=== PATIENT | male | born 1995 | race Asian ===

== ENCOUNTER 2019-01-25 15:56 | Inpatient (IN) ==
[2019-01-25] MEDS ORDERED: VANCOMYCIN HCL 1,500 MG in SODIUM CHLORIDE 0.9% 500 ML IV ONE (17:43)
[2019-01-25] MEDS ORDERED: cefTRIAXone SODIUM 2,000 MG/70 ML BAG IV STA (17:43)
[2019-01-25] MEDS ORDERED: VANCOMYCIN CONSULT ACTIVE PRN ×2 (17:43→23:56)
[2019-01-25] MEDS ORDERED: ACETAMINOPHEN 1,000 MG/100 ML VIAL IV STA (17:55)
[2019-01-25] MEDS ORDERED: ONDANSETRON INJ 2 MG/ML 2 ML VIAL IV STA (17:55)
[2019-01-25] MEDS ORDERED: LEVOFLOXACIN/D5W 750 MG/150 ML BAG IV STA (18:05)
[2019-01-25 18:42] LABS: Basophils # (auto) 0.01 K/uL (0-0.2); Basophils % (auto) 0.1 %; Eosinophils # (auto) 0.22 K/uL (0-0.5); Eosinophils % (auto) 1.7 %; Hematocrit (blood only) 41.9 % (42-52); Hemoglobin 14.4 g/dL (14.0-18.0); Immature Granulocytes # (auto) 0.02 K/uL (0.00-0.02); Immature Granulocytes % (auto) 0.2 %; Lymphocytes # (auto) 2.14 K/uL (1.2-3.4); Lymphocytes % (auto) 16.3 %; Mean Corpuscular Hemoglobin 30.5 pg (25-34); Mean Corpuscular Hgb Conc 34.4 g/dL (32-36); Mean Corpuscular Volume 88.8 fL (80-100); Mean Platelet Volume 9.4 fL (7.4-10.4); Monocytes % (auto) 7.6 %; Neutrophils # (auto) 9.73 K/uL (1.4-6.5); Neutrophils % (auto) 74.1 %; Platelet Count 287 K/uL (130-400); RDW Coefficient of Variation 12.3 % (11.5-14.5); RDW Standard Deviation 39.9 fL (36.4-46.3); Red Blood Count 4.72 M/uL (4.7-6.1); White Blood Count 13.12 K/uL (4.8-10.8)
[2019-01-25] MEDS: HYDROmorphone INJ 1 MG/ML SYRINGE IV PRN ×2 (18:45→20:54)
[2019-01-25 18:46] LABS: Appearance Urine Clear (Clear); Bilirubin Urine Negative (Negative); Blood Urine Negative (Negative); Color Urine Yellow; Glucose Urine UA Negative (Negative); Ketones Urine Negative (Negative); Leukocyte Esterase Urine Negative (Negative); Nitrite Urine Negative (Negative); Protein Urine Negative (Negative); Urobilinogen Urine Negative (Negative); pH Urine 6.5 (4.5-7.5)
[2019-01-25 19:08] LABS: Albumin Level 4.1 gm/dl (3.4-5.0); BUN Creatinine Ratio 12.4 (10-20); Calcium 9.2 mg/dl (8.5-10.1); Creatinine Clr Calc Pharmacy 97.5 ml/min; Est GFR (African American) 108.3; Est GFR (Non-African American) 93.4; Potassium 3.8 mmol/L (3.5-5.1)
[2019-01-25 19:10] LABS: Albumin Globulin Ratio 0.9 (0.9-2); Bilirubin,Total 0.3 mg/dl (0.2-1); Globulin 4.4 gm/dl (2.5-4.0); Total Protein 8.5 gm/dl (6.4-8.2)
[2019-01-25] MEDS ORDERED: LIDO/EPINEPHRINE/SOD BICARB 20 ML VIAL ONE (19:49)
--- NOTE | 2019-01-25 21:12 | Emergency Department Note ---
Entered by Fanny Singh acting as a scribe for Yariel Hamilton MD History of Present Illness General Chief complaint: Knee Injury/Pain Stated complaint: LEFT KNEE INJURY, POSSIBLE INFECTION Time Seen by Provider: 01/25/19 17:16 Source: patient History of Present Illness Provider complaint: Knee Injury/Pain Onset (ago): day(s) 2 Location: knee and left Radiation: non-radiation Maximum Pain Intensity: 7 Relieved By: + none Exacerbated By: + none The patient is a 23 year old male who presents to the Emergency Room with complaints of a left sided knee injury/pain that began 2 days ago. The patient states that he went to [facility] and had his knee tapped and he was referred to the ED for possible infection. The patient states the pain does not radiate anywhere else on his body and is not relieved nor exacerbated by anything specific. Home Medications Home Medications Medication Instructions Recorded Confirmed Type cetirizine [Zyrtec] 10 mg PO DAILY 01/25/19 01/25/19 History naproxen [Naprosyn] 500 mg PO BID 01/25/19 01/25/19 History triamcinolone acetonide 1 applic TOPICAL BID PRN 01/25/19 01/25/19 History cephalexin [Keflex] 500 mg PO QID 14 Days #56 cap 01/27/19 Rx Allergies Allergy/AdvReac Type Severity Reaction Status Date / Time chicken derived Allergy ITCHY Verified 01/25/19 20:45 Penicillins Allergy Rash Verified 01/25/19 20:45 Past Med/Surg History Medical History No pertinent past medical history Psoriasis Family History Other No pertinent family history in first degree relatives Social History Preferred Language: Singaporean Communication Ability: Effective Machine I Cutter Required: No Beliefs That Will Affect Care: None marital status: Single Current Living Situation: Other Current Living Situation Comment: [place] Feels Safe at Home: Yes Smoking Status: Never smoker Hx Alcohol Use: Yes Hx Substance Use: No Review of Systems See HPI for pertinent positives & negatives. and A total of 10 systems reviewed and were otherwise negative Physical Exam Vital Signs Vital Signs - 24 hr 01/25/19 16:05 01/25/19 17:43 01/25/19 18:10 Temperature 36.7 C Temperature Source Oral Pulse Rate 96 H 103 H Pulse Rate [Apical] Pulse Rate from SpO2 Sensor Respiratory Rate 16 18 Respiratory Effort / Characteristics Non-Labored Spontaneous Respiratory Depth Normal Blood Pressure 174/69 H Blood Pressure [Left Arm] Blood Pressure Mean 104 Blood Pressure Mean [Left Arm] Blood Pressure Position Sitting Pulse Oximetry 97 97 Oxygen Delivery Method Room Air Room Air Sepsis Recent Fever Within 48 Hours No Sepsis New/Unexplained Change in Mental Status No Sepsis Action Taken by Nursing No Action Required 01/25/19 18:30 01/25/19 19:00 01/25/19 19:02 Temperature Temperature Source Pulse Rate 92 H 96 H 92 H Pulse Rate [Apical] Pulse Rate from SpO2 Sensor 91 H Respiratory Rate 20 17 17 Respiratory Effort / Characteristics Respiratory Depth Blood Pressure 119/68 Blood Pressure [Left Arm] Blood Pressure Mean 89 Blood Pressure Mean [Left Arm] Blood Pressure Position Pulse Oximetry 97 Oxygen Delivery Method Sepsis Recent Fever Within 48 Hours Sepsis New/Unexplained Change in Mental Status Sepsis Action Taken by Nursing 01/25/19 19:03 01/25/19 20:48 Temperature Temperature Source Pulse Rate 96 H Pulse Rate [Apical] 98 H Pulse Rate from SpO2 Sensor 94 H Respiratory Rate 17 18 Respiratory Effort / Characteristics Respiratory Depth Blood Pressure 119/68 Blood Pressure [Left Arm] 126/76 Blood Pressure Mean 85 Blood Pressure Mean [Left Arm] 92 Blood Pressure Position Pulse Oximetry 96 98 Oxygen Delivery Method Room Air Sepsis Recent Fever Within 48 Hours Sepsis New/Unexplained Change in Mental Status Sepsis Action Taken by Nursing GENERAL: Awake, alert, well-appearing, in no acute distress HENT: Normocephalic, atraumatic. Oropharynx unremarkable. EYES: Normal conjunctiva. Sclera non-icteric. NECK: Supple. No nuchal rigidity. FROM. No JVD. RESPIRATORY: Clear to auscultation. CARDIAC: Regular rate, normal rhythm. Extremities warm and well perfused. Pulses equal. ABDOMEN: Soft, non-distended. No tenderness to palpation. No rebound or guarding. No masses. RECTAL: Deferred. MUSCULOSKELETAL: Chest examination reveals no tenderness. The back is symmetrical on inspection without obvious abnormality. There is no CVA tenderness to palpation. No joint edema. LOWER EXTREMITIES: Calves are equal size bilaterally and non-tender. Open wound to the anterior distal end of femur with bubbling pus but has good ROM of knee itself. NEURO: Normal sensorium. No sensory or motor deficits noted. SKIN: No rash or jaundice noted. Procedures Abscess I/D Site: lower extremity (I myself performed this needle aspiration on the left knee Knee) Side (if applicable): left Local Anesthetic: lidocaine 1% and with epi Amount of anesthesia used (mL): 10 Technique: needle aspiration Amount of fluid expressed (mL): 10 Irrigation: Yes Packing used?: none Course Course 174: Past medical records reviewed. The patient was evaluated in room B04B. A complete history and physical exam was performed. 2004: I spoke with Dr. Montoya- Hospitalist about the patient's case and he will accept the patient for further evaluation. Administered Medications Discontinued Medications Acetaminophen (Tylenol) 650 mg PO Q4H PRN PRN Reason: mild pain or fever Stop: 02/24/19 23:55 Last Admin: 01/26/19 03:08 Dose: 650 mg Documented by: [id number] Acetaminophen (Ofirmev) 1,000 mg IV ONE ONE Stop: 01/26/19 17:08 Last Admin: 01/26/19 17:12 Dose: 1,000 mg Documented by: [id number] Acetaminophen (Ofirmev) Confirm Administered Dose 1,000 mg IV .STK-MED ONE Stop: 01/26/19 17:09 Last Admin: 01/26/19 17:44 Dose: Not Given Documented by: [id number] Bacitracin (Bacitracin) Confirm Administered Dose 50,000 units .ROUTE .STK-MED ONE Stop: 01/26/19 14:50 Last Admin: 01/26/19 16:06 Dose: Not Given Documented by: [id number] Bupivacaine HCl (Marcaine 0.5% Mpf) Confirm Administered Dose 30 ml .ROUTE .STK- MED ONE Stop: 01/26/19 15:46 Last Admin: 01/26/19 16:06 Dose: 5 ml Documented by: [id number] Cefazolin Sodium (Ancef 1000mg) Confirm Administered Dose 1,000 mg IV .STK-MED ONE Stop: 01/26/19 15:21 Last Admin: 01/26/19 17:57 Dose: Not Given Documented by: [id number] Cephalexin HCl (Keflex) 500 mg PO QID JONATHAN Stop: 02/06/19 13:29 Last Admin: 01/27/19 14:22 Dose: 500 mg Documented by: [id number] Cetirizine HCl (Zyrtec) 10 mg PO DAILY [facility] Stop: 02/25/19 08:59 Last Admin: 01/27/19 08:48 Dose: Not Given Documented by: [id number] Admin: 01/26/19 08:44 Dose: Not Given Documented by: [id number] Cetirizine HCl (Zyrtec) 10 mg PO NOW ONE Stop: 01/25/19 23:57 Last Admin: 01/26/19 00:52 Dose: 10 mg Documented by: [id number] Enoxaparin Sodium (Lovenox) 40 mg SQ DAILY [facility] Stop: 02/25/19 08:59 Last Admin: 01/27/19 08:48 Dose: 40 mg Documented by: [id number] Admin: 01/26/19 17:40 Dose: 40 mg Documented by: [id number] Famotidine (Pepcid) 20 mg PO BID [facility] Stop: 02/24/19 22:29 Last Admin: 01/27/19 08:48 Dose: Not Given Documented by: [id number] Admin: 01/26/19 20:19 Dose: Not Given Documented by: [id number] Admin: 01/26/19 08:44 Dose: Not Given Documented by: [id number] Admin: 01/26/19 00:52 Dose: Not Given Documented by: [id number] Fentanyl Citrate (Fentanyl Citrate) 50 mcg IV Q5M PRN PRN Reason: PACU Use Only-Pain Stop: 01/26/19 19:55 Last Admin: 01/26/19 16:41 Dose: 50 mcg Documented by: [id number] Admin: 01/26/19 16:36 Dose: 50 mcg Documented by: [id number] Hydromorphone HCl (Dilaudid) 1 mg IV Q15M PRN PRN Reason: Pain Stop: 02/08/19 17:54 Last Admin: 01/25/19 20:54 Dose: 1 mg Documented by: [id number] Admin: 01/25/19 18:45 Dose: 1 mg Documented by: [id number] Ceftriaxone Sodium (Rocephin) 2,000 mg in 70 mls @ 140 mls/hr IV NOW STA Stop: 01/25/19 18:12 Last Infusion: 01/25/19 19:26 Dose: 0 mls/hr Documented by: [id number] Admin: 01/25/19 18:46 Dose: 140 mls/hr Documented by: [id number] Vancomycin HCl 1,500 mg/ (Sodium Chloride) 530 mls @ 200 mls/hr IV NOW ONE Stop: 01/25/19 20:21 Last Infusion: 01/25/19 23:42 Dose: 0 mls/hr Documented by: [id number] Admin: 01/25/19 20:48 Dose: 200 mls/hr Documented by: [id number] Acetaminophen (Ofirmev) 1,000 mg in 100 mls @ 400 mls/hr IV NOW STA Stop: 01/25/19 18:09 Last Infusion: 01/25/19 19:23 Dose: 0 mls/hr Documented by: [id number] Admin: 01/25/19 18:45 Dose: 400 mls/hr Documented by: [id number] Levofloxacin/Dextrose (Levaquin/D5w) 750 mg in 150 mls @ 100 mls/hr IV NOW STA Stop: 01/25/19 19:34 Last Infusion: 01/25/19 20:44 Dose: 0 mls/hr Documented by: [id number] Admin: 01/25/19 19:00 Dose: 100 mls/hr Documented by: [id number] Methylprednisolone 40 mg/ (Syringe) 0.64 mls @ 1.5 mls/min IV NOW STA Stop: 01/25/19 22:27 Last Admin: 01/25/19 22:53 Dose: 1.5 mls/min Documented by: [id number] Dextrose/Sodium Chloride (D5w And 1/2nss) 1,000 mls @ 125 mls/hr IV .Q8H JONATHAN Stop: 02/24/19 23:55 Last Admin: 01/27/19 08:45 Dose: Not Given Documented by: [id number] Infusion: 01/27/19 08:45 Dose: 0 mls/hr Documented by: [id number] Admin: 01/27/19 01:35 Dose: 125 mls/hr Documented by: [id number] Infusion: 01/27/19 01:35 Dose: 125 mls/hr Documented by: [id number] Admin: 01/26/19 17:46 Dose: 125 mls/hr Documented by: [id number] Infusion: 01/26/19 17:46 Dose: 0 mls/hr Documented by: [id number] Infusion: 01/26/19 14:45 Dose: 0 mls/hr Documented by: [id number] Infusion: 01/26/19 14:10 Dose: 125 mls/hr Documented by: [id number] Admin: 01/26/19 10:04 Dose: 125 mls/hr Documented by: [id number] Infusion: 01/26/19 08:52 Dose: 125 mls/hr Documented by: [id number] Infusion: 01/26/19 05:09 Dose: 125 mls/hr Documented by: [id number] Admin: 01/26/19 00:52 Dose: 125 mls/hr Documented by: [id number] Vancomycin HCl 1,250 mg/ (Sodium Chloride) 275 mls @ 125 mls/hr IV Q10H JONATHAN Stop: 02/05/19 06:59 Last Admin: 01/27/19 13:21 Dose: Not Given Documented by: [id number] Infusion: 01/27/19 05:35 Dose: 0 mls/hr Documented by: [id number] Admin: 01/27/19 03:23 Dose: 125 mls/hr Documented by: [id number] Infusion: 01/26/19 20:04 Dose: 0 mls/hr Documented by: [id number] Admin: 01/26/19 17:33 Dose: 125 mls/hr Documented by: [id number] Infusion: 01/26/19 08:40 Dose: 0 mls/hr Documented by: [id number] Admin: 01/26/19 06:05 Dose: 125 mls/hr Documented by: [id number] Cefazolin Sodium (Ancef 1000mg) 1,000 mg in 7.5 mls @ 2.5 mls/min IV PREOP JONATHAN Stop: 01/26/19 20:00 Last Admin: 01/26/19 15:29 Dose: 2.5 mls/min Documented by: [id number] Ketorolac Tromethamine (Toradol) 15 mg IV Q6H PRN PRN Reason: Moderate Pain Stop: 01/30/19 23:55 Last Admin: 01/27/19 03:16 Dose: 15 mg Documented by: [id number] Admin: 01/26/19 20:52 Dose: 15 mg Documented by: [id number] Lidocaine HCl (Xylocaine 1% (Local)) Confirm Administered Dose 20 ml .ROUTE .STK-MED ONE Stop: 01/26/19 15:46 Last Admin: 01/26/19 16:06 Dose: 5 ml Documented by: [id number] Lidocaine/Epinephrine (Buffered Xylocaine/Epinephrine 1%) Confirm Administered Dose 20 ml .ROUTE .STK-MED ONE Stop: 01/25/19 19:50 Last Admin: 01/26/19 11:28 Dose: Not Given Documented by: [id number] Methylprednisolone (Solumedrol) Confirm Administered Dose 40 mg .ROUTE .STK-MED ONE Stop: 01/25/19 22:48 Last Admin: 01/26/19 11:28 Dose: Not Given Documented by: [id number] Ondansetron HCl (Zofran) 4 mg IV NOW STA Stop: 01/25/19 17:56 Last Admin: 01/25/19 18:45 Dose: 4 mg Documented by: [id number] Medical Decision Making Differential Diagnosis Differential diagnosis: Etiologies such as cellulitis, abscess, osteomyelitis, MRSA infection, DVT, necrotizing fasciitis, dermatitis, drug eruption, as well as others were entertained. Medical Records Attestation: I reviewed the patient's medical records. Home Medications Current Medication List: was personally reviewed by me Laboratory Data Attestation: I reviewed the patient's lab results. Result diagrams: 01/27/19 07:01 01/27/19 07:01 Lab Results 01/25/19 01/25/19 01/25/19 Range/Units 18:05 18:12 18:12 WBC 13.12 H (4.8-10.8) K/uL RBC 4.72 (4.7-6.1) M/uL Hgb 14.4 (14.0-18.0) g/dL Hct 41.9 L (42-52) % MCV 88.8 (80-100) fL MCH 30.5 (25-34) pg MCHC 34.4 (32-36) g/dL RDW Std Deviation 39.9 (36.4-46.3) fL RDW Coeff of Jada 12.3 (11.5-14.5) % Plt Count 287 (130-400) K/uL MPV 9.4 (7.4-10.4) fL Immature Gran % (Auto) 0.2 % Neut % (Auto) 74.1 % Lymph % (Auto) 16.3 % [place] % (Auto) 7.6 % Eos % (Auto) 1.7 % Baso % (Auto) 0.1 % Immature Gran # (Auto) 0.02 (0.00-0.02) K/uL Neut # (Auto) 9.73 H (1.4-6.5) K/uL Lymph # (Auto) 2.14 (1.2-3.4) K/uL [place] # (Auto) 1.00 H (0.11-0.59) K/uL Eos # (Auto) 0.22 (0-0.5) K/uL Baso # (Auto) 0.01 (0-0.2) K/uL Sodium 137 (136-145) mmol/L Potassium 3.8 (3.5-5.1) mmol/L Chloride 105 (98-107) mmol/L Carbon Dioxide 25 (21-32) mmol/L Anion Gap 6.0 (3-11) BUN 14 (7-18) mg/dl Creatinine 1.12 (0.6-1.4) mg/dl Est Cr Clr Drug Dosing 97.5 ml/min Est GFR ( Amer) 108.3 Est GFR (Non-Af Amer) 93.4 BUN/Creatinine Ratio 12.4 (10-20) Glucose 80 (70-99) mg/dl Calcium 9.2 (8.5-10.1) mg/dl Total Bilirubin 0.3 (0.2-1) mg/dl AST 25 (15-37) U/L ALT 42 (12-78) U/L Alkaline Phosphatase 74 (45-117) U/L Total Protein 8.5 H (6.4-8.2) gm/dl Albumin 4.1 (3.4-5.0) gm/dl Globulin 4.4 H (2.5-4.0) gm/dl Albumin/Globulin Ratio 0.9 (0.9-2) Procalcitonin (0-0.5) ng/ml Urine Color Yellow Urine Appearance Clear (Clear) Urine pH 6.5 (4.5-7.5) Ur Specific [place] 1.020 (1.000-1.030) Urine Protein Negative (Negative) Urine Glucose (UA) Negative (Negative) Urine Ketones Negative (Negative) Urine Blood Negative (Negative) Urine Nitrite Negative (Negative) Urine Bilirubin Negative (Negative) Urine Urobilinogen Negative (Negative) Ur Leukocyte Esterase Negative (Negative) 01/25/19 Range/Units 18:12 WBC (4.8-10.8) K/uL RBC (4.7-6.1) M/uL Hgb (14.0-18.0) g/dL Hct (42-52) % MCV (80-100) fL MCH (25-34) pg MCHC (32-36) g/dL RDW Std Deviation (36.4-46.3) fL RDW Coeff of Jada (11.5-14.5) % Plt Count (130-400) K/uL MPV (7.4-10.4) fL Immature Gran % (Auto) % Neut % (Auto) % Lymph % (Auto) % [place] % (Auto) % Eos % (Auto) % Baso % (Auto) % Immature Gran # (Auto) (0.00-0.02) K/uL Neut # (Auto) (1.4-6.5) K/uL Lymph # (Auto) (1.2-3.4) K/uL [place] # (Auto) (0.11-0.59) K/uL Eos # (Auto) (0-0.5) K/uL Baso # (Auto) (0-0.2) K/uL Sodium (136-145) mmol/L Potassium (3.5-5.1) mmol/L Chloride (98-107) mmol/L Carbon Dioxide (21-32) mmol/L Anion Gap (3-11) BUN (7-18) mg/dl Creatinine (0.6-1.4) mg/dl Est Cr Clr Drug Dosing ml/min Est GFR ( Amer) Est GFR (Non-Af Amer) BUN/Creatinine Ratio (10-20) Glucose (70-99) mg/dl Calcium (8.5-10.1) mg/dl Total Bilirubin (0.2-1) mg/dl AST (15-37) U/L ALT (12-78) U/L Alkaline Phosphatase (45-117) U/L Total Protein (6.4-8.2) gm/dl Albumin (3.4-5.0) gm/dl Globulin (2.5-4.0) gm/dl Albumin/Globulin Ratio (0.9-2) Procalcitonin 0.15 (0-0.5) ng/ml Urine Color Urine Appearance (Clear) Urine pH (4.5-7.5) Ur Specific [place] (1.000-1.030) Urine Protein (Negative) Urine Glucose (UA) (Negative) Urine Ketones (Negative) Urine Blood (Negative) Urine Nitrite (Negative) Urine Bilirubin (Negative) Urine Urobilinogen (Negative) Ur Leukocyte Esterase (Negative) ECG Data Attestation: I personally reviewed and interpreted this ECG as follows: Indication: + other (Knee Injury/Pain) Rate (beats per minute): 99 Rhythm: + normal sinus ECG Intervals/blocks: + Normal QT-c (QTC is 454) ECG ST segments: + Normal ST segments ECG Findings: + Other (Normal axis) Blood Pressure Blood Pressure Findings: Normal blood pressure Blood Pressure Disposition: further management by hospitalist [facility] Narrative This is a 23-year-old male who presents emergency department complaining of knee pain. Patient had a large amount of pus drained from the knee by myself. I performed the procedure above. He was given Dilaudid for the pain and started on IV Rocephin and vancomycin as he is failed outpatient and antibiotic treatment. Due to the large area of cellulitis I did discuss the case with the hospitalist service who did agree to admit the patient. The knee itself the patient has good range of motion of and I believe that this abscess is in the prepatellar bursa. He does not have any evidence of any infection on my physical examination. Patient was in agreement with the treatment plan. Impression & Plan Infected prepatellar bursa, Cellulitis of knee, left, Knee pain Discharge Plan Visit Data *Final* Discharge Date/Time: 01/25/19 23:27 Chief Complaint: Knee Injury/Pain Stated Complaint: LEFT KNEE INJURY, POSSIBLE INFECTION ED Provider: Yariel Hamilton Discharge Problem: Infected prepatellar bursa, Cellulitis of knee, left, Knee pain Patient Disposition: Admitted As Inpatient Discharge Instructions Interventions: ED Discharge Assessment Last Done: 01/25/19 23:27 Discharge Problem: Infected prepatellar bursa Qualifiers: Laterality: left Qualified Code(s): M71.162 - Other infective bursitis, left knee Knee pain Qualifiers: Chronicity: acute Laterality: left Qualified Code(s): M25.562 - Pain in left knee The scribe's documentation has been prepared under my direction and personally reviewed by me in its entirety. I confirm that the note above accurately reflects all work, treatment, procedures, and medical decision making performed by me.
[2019-01-25] MEDS ORDERED: methylPREDNISolone 40 MG in SYRINGE 0 ML IV STA (22:26)
--- NOTE | 2019-01-25 22:31 | History & Physical Report ---
Date of Service January 25, 2019 Assessment & Plan (1) Infected prepatellar bursa: Admit to [facility] Continue IV Vancomycin There was discussion as to concerns for Vibrio infection as patient was recently in the [facility] He was given a dose of Rocephin and Levaquin in the ED each of which covers Vibrio. The patient is not immunocompromised and did not appear to have hemorrhagic bullae therefore I only continued Vancomycin at this time. I will have ID consulted CT scan of the L knee ordered Ortho consult Pain control. (2) Cellulitis of knee, left: DVT prophylaxis = Lovenox. (3) Dermatitis: Patient feels this is allergic reaction to something during his trip. He does have history of psoriasis lesions at base of scalp I gave single dose of Solu medrol 40mg IV. I will order steroid cream to use fo r am. Prn Benadryl in addition to his daily Zyrtec dosing. 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 He went to the [facility] and had pre-patellar bursa tapped and was placed on Bactrim. Following this the pain and redness worsened. The patient has recently traveled to the [facility] for break. He declined having F/C, N/V/D, cough, SOB, or chest pain. Left knee pain is 7/10. Primary Care Provider: [facility] Allergies Allergy/AdvReac Type Severity Reaction Status Date / Time chicken derived Allergy ITCHY Verified 01/25/19 20:45 Penicillins Allergy Rash Verified 01/25/19 20:45 Home Medications Home Medications Medication Instructions Recorded Confirmed Type cetirizine [Zyrtec] 10 mg PO DAILY 01/25/19 01/25/19 History naproxen [Naprosyn] 500 mg PO BID 01/25/19 01/25/19 History sulfamethoxazole-trimethoprim 1 tab PO BID 01/25/19 01/25/19 History [Bactrim DS] triamcinolone acetonide 1 applic TOPICAL BID PRN 01/25/19 01/25/19 History Past Med/Surg History Medical History No pertinent past medical history Psoriasis Family History Other No pertinent family history in first degree relatives Social History Preferred Language: Czech Feels Safe at Home: Yes Smoking Status: Never smoker Review of Systems Review of Systems: Constitutional- no fever; no weight loss Eyes- no acute visual changes ENT- no sinus drainage; no pharyngitis Pulmonary- no cough, no wheezing, no shortness of breath Cardiac- no chest pain, no palpitations, no orthopnea, no dependent edema GI- no nausea, no vomiting, no diarrhea, no melena, no hematochezia - no dysuria, no hematuria Musculoskeletal- As in HPI Derm- Left knee as in HPI, He shows me pruritic areas with erythema at base of posterior hairline and right thumb and 2nd finger. Hematologic- no unusual bruising, no unusual bleeding Lymphatics- no adenopathy Endocrine- no polyuria or polydipsia; no heat or cold intolerance Neuro- no headaches, no focal neurologic symptoms Psych- no anxiety, no depression Physical Exam Physical Exam: General- adult male, NAD Head- atraumatic Eyes- PERRL, EOMI, anicteric ENT- oropharynx clear Neck- supple, no JVD, no adenopathy, no thyromegaly. Lungs- CTA b/l no R/R/W Heart- regular rhythm; no murmur, no gallop, no rub appreciated Abdomen- normal bowel sounds, soft, nontender. Extremities- erythema centered over the left patella extending 1/[address] way to distal leg, around to posterior knee, and proximally to 1/3 lower thigh. The knee is dressed following I&D in ED. Neuro- alert, oriented x 3; PERRL, EOMI; CN's II-XII grossly intact, non-focal. Skin- See extremities, also erythema to the right hand between thumb and index finger and also base of posterior scalp these areas are pruritic. Results & Data Vital Signs (Past 12 Hours) Vital Signs Temp Pulse Pulse Resp BP BP Pulse Ox 01/25/19 22:01 95 H 14 01/25/19 22:00 79 14 118/40 L 01/25/19 21:30 85 23 118/71 01/25/19 21:01 84 23 01/25/19 21:00 99 H 17 111/93 01/25/19 20:48 98 H 18 126/76 98 01/25/19 20:30 99 H 17 126/76 01/25/19 20:00 101 H 19 126/87 01/25/19 19:30 102 H 14 118/63 01/25/19 19:03 96 H 17 119/68 96 01/25/19 19:02 92 H 17 119/68 97 01/25/19 19:00 96 H 17 01/25/19 18:30 92 H 20 01/25/19 18:10 103 H 18 01/25/19 17:43 97 01/25/19 16:05 36.7 C 96 H 16 174/69 H 97 Laboratory Results Laboratory Results WBC 13.12 K/uL (4.8-10.8) H 01/25/19 18:12 RBC 4.72 M/uL (4.7-6.1) 01/25/19 18:12 Hgb 14.4 g/dL (14.0-18.0) 01/25/19 18:12 Hct 41.9 % (42-52) L 01/25/19 18:12 MCV 88.8 fL (80-100) 01/25/19 18:12 MCH 30.5 pg (25-34) 01/25/19 18:12 MCHC 34.4 g/dL (32-36) 01/25/19 18:12 RDW Std Deviation 39.9 fL (36.4-46.3) 01/25/19 18:12 RDW Coeff of Jada 12.3 % (11.5-14.5) 01/25/19 18:12 Plt Count 287 K/uL (130-400) 01/25/19 18:12 MPV 9.4 fL (7.4-10.4) 01/25/19 18:12 Immature Gran % (Auto) 0.2 % 01/25/19 18:12 Neut % (Auto) 74.1 % 01/25/19 18:12 Lymph % (Auto) 16.3 % 01/25/19 18:12 [place] % (Auto) 7.6 % 01/25/19 18:12 Eos % (Auto) 1.7 % 01/25/19 18:12 Baso % (Auto) 0.1 % 01/25/19 18:12 Immature Gran # (Auto) 0.02 K/uL (0.00-0.02) 01/25/19 18:12 Neut # (Auto) 9.73 K/uL (1.4-6.5) H 01/25/19 18:12 Lymph # (Auto) 2.14 K/uL (1.2-3.4) 01/25/19 18:12 [place] # (Auto) 1.00 K/uL (0.11-0.59) H 01/25/19 18:12 Eos # (Auto) 0.22 K/uL (0-0.5) 01/25/19 18:12 Baso # (Auto) 0.01 K/uL (0-0.2) 01/25/19 18:12 Sodium 137 mmol/L (136-145) 01/25/19 18:12 Potassium 3.8 mmol/L (3.5-5.1) 01/25/19 18:12 Chloride 105 mmol/L (98-107) 01/25/19 18:12 Carbon Dioxide 25 mmol/L (21-32) 01/25/19 18:12 Anion Gap 6.0 (3-11) 01/25/19 18:12 BUN 14 mg/dl (7-18) 01/25/19 18:12 Creatinine 1.12 mg/dl (0.6-1.4) 01/25/19 18:12 Est Cr Clr Drug Dosing 97.5 ml/min 01/25/19 18:12 Est GFR ( Amer) 108.3 01/25/19 18:12 Est GFR (Non-Af Amer) 93.4 01/25/19 18:12 BUN/Creatinine Ratio 12.4 (10-20) 01/25/19 18:12 Glucose 80 mg/dl (70-99) 01/25/19 18:12 Calcium 9.2 mg/dl (8.5-10.1) 01/25/19 18:12 Total Bilirubin 0.3 mg/dl (0.2-1) 01/25/19 18:12 AST 25 U/L (15-37) 01/25/19 18:12 ALT 42 U/L (12-78) 01/25/19 18:12 Alkaline Phosphatase 74 U/L (45-117) 01/25/19 18:12 Total Protein 8.5 gm/dl (6.4-8.2) H 01/25/19 18:12 Albumin 4.1 gm/dl (3.4-5.0) 01/25/19 18:12 Globulin 4.4 gm/dl (2.5-4.0) H 01/25/19 18:12 Albumin/Globulin Ratio 0.9 (0.9-2) 01/25/19 18:12 Procalcitonin 0.15 ng/ml (0-0.5) 01/25/19 18:12 Urine Color Yellow 01/25/19 18:05 Urine Appearance Clear (Clear) 01/25/19 18:05 Urine pH 6.5 (4.5-7.5) 01/25/19 18:05 Ur Specific [place] 1.020 (1.000-1.030) 01/25/19 18:05 Urine Protein Negative (Negative) 01/25/19 18:05 Urine Glucose (UA) Negative (Negative) 01/25/19 18:05 Urine Ketones Negative (Negative) 01/25/19 18:05 Urine Blood Negative (Negative) 01/25/19 18:05 Urine Nitrite Negative (Negative) 01/25/19 18:05 Urine Bilirubin Negative (Negative) 01/25/19 18:05 Urine Urobilinogen Negative (Negative) 01/25/19 18:05 Ur Leukocyte Esterase Negative (Negative) 01/25/19 18:05 Code Status & VTE Plan VTE Prophylaxis Plan VTE Prophylaxis will be ordered: Yes PG Care Time/CCT Total # of Minutes Spent Total Time Spent: 65 Total Time Spent with Patient: Total time spent is greater than 50% in coordination of care (as documented) at patient's floor/unit and/or counseling patient:
[2019-01-25] MEDS ORDERED: ACETAMINOPHEN 325 MG TAB PO PRN (23:56)
[2019-01-25] MEDS ORDERED: TRIAMCINOLONE ACET 0.5% CR 15 GM TUBE TOP PRN (23:56)
[2019-01-25] MEDS ORDERED: HYDROmorphone INJ 0.5 MG/0.5 ML SYR IV PRN (23:56)
[2019-01-25] MEDS ORDERED: ONDANSETRON INJ 2 MG/ML 2 ML VIAL IV PRN (23:56)
[2019-01-25] MEDS ORDERED: VANCOMYCIN HCL 1,250 MG in SODIUM CHLORIDE 0.9% 500 ML IV SCH (23:56)
[2019-01-25] MEDS ORDERED: CETIRIZINE HCL 10 MG TABLET PO ONE (23:56)
[2019-01-25] MEDS ORDERED: MoRPHine SULFATE 2 MG/ML CARP IV PRN (23:56)
[2019-01-26] MEDS: D5W AND 1/2NSS 1,000 ML IV SCH ×3 (00:52→17:46)
[2019-01-26] MEDS: FAMOTIDINE 20 MG TAB PO SCH ×3 (00:52→20:19)
--- NOTE | 2019-01-26 04:07 | Pharmacy Report ---
Pharmacy Abx Initial Consult - Date of Service January 26, 2019 - Pharmacy Dosing Scope Date of Consult: 01/26/19 Consultation requested by: Dr. Montoya Pharmacy is consulted to initiate Vancomcyin IV dosing therapy, order appropriate labs and adjust drug dose/frequency. - Subjective The patient is a 23 year old M admitted on 01/25/19 22:26. - Objective Height: 5 ft 7 in Weight: 79.2 kg (BMI 27.3) Vital Signs (Past 12hrs): Vital Signs Temp Pulse Pulse Resp BP BP Pulse Ox 01/25/19 23:40 36.4 C L 86 16 134/78 99 01/25/19 23:20 85 21 118/69 98 01/25/19 22:01 95 H 14 01/25/19 22:00 79 14 118/40 L 01/25/19 21:30 85 23 118/71 01/25/19 21:01 84 23 01/25/19 21:00 99 H 17 111/93 01/25/19 20:48 98 H 18 126/76 98 01/25/19 20:30 99 H 17 126/76 01/25/19 20:00 101 H 19 126/87 01/25/19 19:30 102 H 14 118/63 01/25/19 19:03 96 H 17 119/68 96 01/25/19 19:02 92 H 17 119/68 97 01/25/19 19:00 96 H 17 01/25/19 18:30 92 H 20 01/25/19 18:10 103 H 18 01/25/19 17:43 97 01/25/19 16:05 36.7 C 96 H 16 174/69 H 97 Lab Results (24hrs): Laboratory Tests (24 Hours) 01/25/19 01/25/19 01/25/19 18:12 18:12 18:12 WBC 13.12 H Neut # (Auto) 9.73 H Creatinine 1.12 Est Cr Clr Drug Dosing 97.5 Procalcitonin 0.15 Micro Results: 01/25/19 20:15 Gram Stain - Pending Knee,Left Wound Culture - Pending 01/25/19 18:12 Aerobic Blood Culture - Pending Blood Anaerobic Blood Culture - Pending 01/25/19 18:19 Aerobic Blood Culture - Pending Blood Anaerobic Blood Culture - Pending 01/25/19 18:10 Gram Stain - Pending Knee,Left Wound Culture - Pending - Risk Factors for Resistance * Antimicrobial use within the last 90 days Bactrim - Assessment & Plan Assessment 23 year old M presented to ED with pain, swelling, & redness to the anterior left knee x 2 days. Went to [facility] and had pre-patellar bursa tapped. He was placed on Bactrim. Following this the pain and redness worsened, with left knee pain 7/10. Erythema centered over left patlla extending 1/2 way to distal leg, around to posterior knee, and proximally to 1/3 lower thight. Patient recently traveled to the [facility] and there is concern for Vibrio infection due to recent travel. Received Rocephin and Levaquin in ED. Plan Vancomcyin for treatment of skin infection Vancomycin IV * Estimated PK Parameters: Vd 0.7 L/kg, Bc 0.085 hr-1, t1/2 8.2 hr * Loading dose: 1500 mg (~19 mg/kg) * Maintenance dose: 1250 mg IV (15.8 mg/kg) every 10 hours * Goal trough level : ~15 mcg/mL * Trough level ordered for 01/27/19 @ 1230 * A less than traditional dose and/or extended dosing interval has/have been selected due to likelihood of drug accumulation in obese patient/patient with h/o CKD. Pharmacy will continue to follow and will adjust dose/frequency as necessary. Thank you.
[2019-01-26] MEDS: VANCOMYCIN HCL 1,250 MG in SODIUM CHLORIDE 0.9% 250 ML IV SCH ×2 (06:05→17:33)
--- NOTE | 2019-01-26 07:19 | CT Scan Report ---
LEFT KNEE CT CT DOSE: 185.01 mGy.cm HISTORY: Cellulitis left knee TECHNIQUE: Multiaxial CT images of the left knee were performed and reformatted in the sagittal and c oronal plane without the use of contrast. A dose lowering technique was utilized adhering to the ramirez nciFrandy. COMPARISON: None. FINDINGS: No fracture or dislocation within the left knee. No cortical destruction to suggest an oste omyelitis. Anterolateral soft tissue swelling with subcutaneous edema and skin thickening. No loculat ed fluid collections to suggest an abscess on this noncontrast study. No knee effusion. No radiopaque foreign bodies. Punctate focus of gas within the prepatellar soft tissues best seen on sagittal imag e 53 of 79. IMPRESSION: 1. Skin thickening with subcutaneous edema and soft tissue swelling within the anterolateral left kne e. This likely represents a soft tissue infection/cellulitis. There is a punctate focus of subcutaneo us gas within the prepatellar soft tissues without definite loculated fluid collection to suggest an abscess. Therefore, this could be due to a small laceration or possibly a gas-forming organism. Clini jania correlation recommended. This finding was called/faxed to the referring physician following dicta tion. 2. No underlying bony abnormality. Electronically signed by: Aren Troncoso M.D. 01/26/2019 7:17 AM
[2019-01-26 07:56] LABS: Hematocrit (blood only) 41.2 % (42-52); Hemoglobin 14.1 g/dL (14.0-18.0); Mean Corpuscular Hemoglobin 30.4 pg (25-34); Mean Corpuscular Hgb Conc 34.2 g/dL (32-36); Mean Corpuscular Volume 88.8 fL (80-100); Mean Platelet Volume 9.3 fL (7.4-10.4); Platelet Count 294 K/uL (130-400); RDW Coefficient of Variation 12.2 % (11.5-14.5); RDW Standard Deviation 39.3 fL (36.4-46.3); Red Blood Count 4.64 M/uL (4.7-6.1); White Blood Count 11.86 K/uL (4.8-10.8)
[2019-01-26 08:32] LABS: BUN Creatinine Ratio 11.6 (10-20); C Reactive Protein 4.99 mg/dl (0-0.29); Calcium 9.6 mg/dl (8.5-10.1); Creatinine Clr Calc Pharmacy 118.7 ml/min; Est GFR (African American) 137.3; Est GFR (Non-African American) 118.5; Potassium 4.3 mmol/L (3.5-5.1)
[2019-01-26] MEDS: CETIRIZINE HCL 10 MG TABLET PO SCH (08:44)
--- NOTE | 2019-01-26 09:01 | Orthopedic Consultation ---
Date of Consultation January 26, 2019 Assessment & Plan (1) Infected prepatellar bursa: He appears to have a septic prepatellar bursitis with a small fluctuant pocket of pus over the anterior lateral aspect of the patella. No evidence of a septic knee joint. He is improving on oral and IV antibiotics. His more diffuse cellulitis seems to be receding. We discussed continuing a trial of IV antibiotics to see if this clears up this small abscess, but mutually decided to proceed with surgical irrigation and debridement for definitive eradication of this infection. Risks, benefits, and alternatives of surgery were explained in detail. The surgical procedure, as well as postoperative recovery and rehabilitation, was also explained in detail. Risks include bleeding; persistent infection; damage to surrounding structures such as nerves, blood vessels, and tendons that run in the area; persistent pain, weakness, or stiffness; or need for further surgery. He understands all of this and wishes to proceed with surgery. Informed consent was obtained. We will try to get this done today. He should remain n.p.o. until then. Present on Admission?: Yes History of Present Illness Reason for Consultation: Left knee infection Attending Physician: Willie De Leon History of Present Illness Mr. Nickerson is a 23-year-old male who was on a cruise in the [facility] last week. He notes that he has chronically dry skin over his knees, but he denies any scrapes or puncture or fall onto his left knee. He started noticing pain and swelling in the anterior aspect of his left knee about 6 days ago on Wednesday when he was still on the cruise. This progressively worsened over the weekend, and on Wednesday, January 23 he went to [employer] where he says that a little bit of purulent fluid was drained out of his knee. He was also started on some oral antibiotics. He has very gradually improved over the last 2 to 3 days, but he still has pain and swelling, as well as a little bit of drainage from the anterior lateral aspect of his left knee. Allergies Allergy/AdvReac Type Severity Reaction Status Date / Time chicken derived Allergy ITCHY Verified 01/25/19 20:45 Penicillins Allergy Rash Verified 01/25/19 20:45 Home Medications Home Medications Medication Instructions Recorded Confirmed Type cetirizine [Zyrtec] 10 mg PO DAILY 01/25/19 01/25/19 History naproxen [Naprosyn] 500 mg PO BID 01/25/19 01/25/19 History sulfamethoxazole-trimethoprim 1 tab PO BID 01/25/19 01/25/19 History [Bactrim DS] triamcinolone acetonide 1 applic TOPICAL BID PRN 01/25/19 01/25/19 History Patient History Medical History No pertinent past medical history Psoriasis Family History Other No pertinent family history in first degree relatives Social History Preferred Language: Faroese 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 Awake, alert, and oriented x 3. Appropriate mood and affect. Normal gait and station. Normal coordination and balance. Skin: The skin over the left knee shows a small fluctuant pocket measuring about 2 to 3 cm in diameter over the anterolateral aspect of the patella. There is a central sinus in this fluctuant pocket, with some purulent drainage. This area is tender to palpation. There is minimal surrounding swelling, erythema, and induration. Inspection/Palpation: Visual inspection reveals no gross deformity of the knee. There is no palpable knee joint effusion. Range of Motion: There is near full range of motion of the left knee without pain. Stability: There is no gross ligamentous laxity. Strength: There is full strength of the knee. Sensation: The patient reports no numbness in the leg. Vascular: Foot is warm and well perfused. No diffuse edema. Results & Data Vital Signs (Past 12 Hours) Vital Signs Temp Pulse Pulse Resp BP BP Pulse Ox 01/26/19 07:26 36.3 C L 76 16 110/75 98 01/25/19 23:40 36.4 C L 86 16 134/78 99 01/25/19 23:20 85 21 118/69 98 01/25/19 22:01 95 H 14 01/25/19 22:00 79 14 118/40 L 01/25/19 21:30 85 23 118/71 01/25/19 21:01 84 23 01/25/19 21:00 99 H 17 111/93 Laboratory Results Wound cultures and blood cultures obtained yesterday were reviewed. The wound Gram stain was negative for bacteria. Cultures are still pending. I do not see culture results that were reportedly obtained at [facility] earlier this week. Diagnostic Findings CT scan of the left knee was also reviewed. It shows an area of soft tissue swelling over the anterior lateral aspect of the patella. No knee effusion is visualized.
--- NOTE | 2019-01-26 10:32 | Infectious Disease Consult ---
Date of Consultation January 26, 2019 Assessment & Plan (1) Infected prepatellar bursa: Patient with septic prepatellar bursitis with surrounding cellulitis involving the left knee, appears to be responding to vancomycin. Appearance most typical for staphylococcal infection. Await further culture results and results from OR. Hopefully will not require prolonged IV antibiotics and can be transitioned in the near future to oral therapy. Will follow. (2) Cellulitis of knee, left: History of Present Illness Reason for Consultation: Left knee cellulitis, recent [place] travel Attending Physician: Willie De Leon History of Present Illness 23-year-old male in prior good health except for psoriasis, was well until 2 days prior to admission when he noted acute onset of pain and swelling with erythema around his left knee. Developed area of fluctuance, sought care at the [facility], and sent to the emergency room for further management. He has been found to have evidence of prepatellar bursitis, with surrounding cellulitis, and now with plans for OR drainage later today. He was started empirically on IV vancomycin and has shown significant improvement overnight with regression of area of erythema. He has developed opening and drainage from the area of fluctuance. Gram stain of the fluid is negative, cultures are pending. Of note, patient recently traveled in the [place]. Denies any significant trauma to the area. No history of open wounds in the area. Allergies Allergy/AdvReac Type Severity Reaction Status Date / Time chicken derived Allergy ITCHY Verified 01/25/19 20:45 Penicillins Allergy Rash Verified 01/25/19 20:45 Home Medications Home Medications Medication Instructions Recorded Confirmed Type cetirizine [Zyrtec] 10 mg PO DAILY 01/25/19 01/25/19 History naproxen [Naprosyn] 500 mg PO BID 01/25/19 01/25/19 History sulfamethoxazole-trimethoprim 1 tab PO BID 01/25/19 01/25/19 History [Bactrim DS] triamcinolone acetonide 1 applic TOPICAL BID PRN 01/25/19 01/25/19 History Patient History Medical History No pertinent past medical history Psoriasis Family History Other No pertinent family history in first degree relatives Social History Preferred Language: Greek Communication Ability: Effective [employer]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 Beliefs That Will Affect Care: None Current Living Situation: Other Current Living Situation Comment: roomates Feels Safe at Home: Yes Smoking Status: Never smoker Hx Alcohol Use: Yes Hx Substance Use: No Review of Systems Review of Systems: All systems reviewed & are unremarkable except as noted in HPI & below Physical Exam Constitutional: WD/WN, vitals as above comfortable; no acute distress Eyes: PERRL, conjunctivae normal, anicteric sclerae ENMT: external ear and nose normal, oropharynx normal Neck: trachea midline, no thyromegaly neck nontender Respiratory: normal respiratory effort, lungs clear to auscultation normal percussion; does not use accessory muscles Cardiovascular: Rate/Rhythm: regular rate and regular rhythm Heart Sounds: normal S1 and normal S2; no gallop, no murmur and no cardiac rub Vessels: no rmal peripheral pulses; no JVD Gastrointestinal (Abdomen): normal bowel sounds, soft, nontender, no hepatosplenomegaly Musculoskeletal: no cyanosis or clubbing, extremities motor strength 5/5 Spine: thoracic spine normal to inspection and lumbar spine normal to inspection; no cervical spinal tenderness Skin: no rashes, warm and dry normal turgor, + wound (Small open wound with slightly purulent drainage overlying left knee) and + erythema (Receding erythema surrounding the left knee) Neurologic: moves all extremities and awake; no focal motor deficits Psychiatric: A+Ox3, euthymic affect Orientation: cooperative Lymphatic: no cervical or axillary lymphadenopathy no inguinal lympha denopathy Results & Data Vital Signs (Past 12 Hours) Vital Signs Temp Pulse Resp BP Pulse Ox 01/26/19 07:26 36.3 C L 76 16 110/75 98 01/25/19 23:40 36.4 C L 86 16 134/78 99 01/25/19 23:20 85 21 118/69 98 Laboratory Results Short CBC 01/25/19 01/26/19 Range/Units 18:12 07:17 WBC 13.12 H 11.86 H (4.8-10.8) K/uL Hgb 14.4 14.1 (14.0-18.0) g/dL Hct 41.9 L 41.2 L (42-52) % Plt Count 287 294 (130-400) K/uL BMP 01/25/19 01/26/19 18:12 07:17 Sodium 137 137 Potassium 3.8 4.3 Chloride 105 106 Carbon Dioxide 25 25 BUN 14 11 Creatinine 1.12 0.92 Glucose 80 145 H Calcium 9.2 9.6 Liver Function 01/25/19 Range/Units 18:12 Total Bilirubin 0.3 (0.2-1) mg/dl AST 25 (15-37) U/L ALT 42 (12-78) U/L Alkaline Phosphatase 74 (45-117) U/L Albumin 4.1 (3.4-5.0) gm/dl Urine 01/25/19 Range/Units 18:05 Urine Color Yellow Urine Appearance Clear (Clear) Urine pH 6.5 (4.5-7.5) Ur Specific [place] 1.020 (1.000-1.030) Urine Protein Negative (Negative) Urine Glucose (UA) Negative (Negative) Diagnostic Findings Microbiology 01/25/19 20:15 Knee,Left Gram Stain - Final 01/25/19 18:10 Knee,Left Gram Stain - Final LEFT KNEE CT CT DOSE: 185.01 mGy.cm HISTORY: Cellulitis left knee TECHNIQUE: Multiaxial CT images of the left knee were performed and reformatted in the sagittal and coronal plane without the use of contrast. A dose lowering technique was utilized adhering to the principles of ALARA. COMPARISON: None. FINDINGS: No fracture or dislocation within the left knee. No cortical destruction to suggest an osteomyelitis. Anterolateral soft tissue swelling with subcutaneous edema and skin thickening. No loculated fluid collections to suggest an abscess on this noncontrast study. No knee effusion. No radiopaque foreign bodies. Punctate focus of gas within the prepatellar soft tissues best seen on sagittal image 53 of 79. IMPRESSION: 1. Skin thickening with subcutaneous edema and soft tissue swelling within the anterolateral left knee. This likely represents a soft tissue infection/cellulitis. There is a punctate focus of subcutaneous gas within the prepatellar soft tissues without definite loculated fluid collection to suggest an abscess. Therefore, this could be due to a small laceration or possibly a gas-forming organism. Clinical correlation recommended. This finding was c alled/faxed to the referring physician following dictation. 2. No underlying bony abnormality. Electronically signed by: Aren Troncoso M.D. 01/26/2019 7:17 AM Dictated: 01/26/19 0713 Transcribed: 01/26/19712 PG Care Time/CCT Total # of Minutes Spent Total Time Spent with Patient: Total time spent is greater than 50% in coordination of care (as documented) at patient's floor/unit and/or counseling patient:
--- NOTE | 2019-01-26 12:31 | Hospitalist Progress Note ---
Date of Service January 26, 2019 Assessment & Plan (1) Infected prepatellar bursa: * Patient admitted with evidence of infection LEFT prepatellar burse. Recent travel to [facility] on cruise, concern for Vibrio. Rocephin/Levaquin in ED x 1. Switched to vancomycin as patient without bullae at this time. * Of note, patient was seen at [facility] and placed on Bactrim wednesday without improvement. Procalcitonin wnl. CRP elevated at 4.99. Patient afebrile. WBC 11.8k today * Continue IV Vancomycin * CT LEFT knee--> soft tissue swelling within anterolateral left knee, likely infection/cellulitis. Punctate focus of SQ gas within prepatellar soft tissues without definite loculated fluid collection. ?Gas forming organism -- will await cx results after I&D * Ortho Consult- appreciate input --> patient to OR today with Dr. Back for I&D * ID Consult- appreciate recs (2) Dermatitis: * Patient feels this is allergic reaction to something during his trip. Denies new shampoo/conditioner/body wash. * Given 1x dose of solumedrol 40mg --> triamcinolone topical today * Patient with possible history of psoriasis -- appointment with fine wire drawer on Wednesday * Continue home zyrtec 10mg * Benadryl prn pruritis (3) Cellulitis of knee, left: * As above (4) DVT prophylaxis: * Lovenox Dispo: OR today with Dr. Back -- await cultures results Supervising Physician Co-Signing Physician Notes Attending Attestation - Chart reviewed in detail, care plan d/w EMELINA Simon. I agree w/ the chris components of her documentation. 23yo male with septic bursitis to L knee. To OR today for I/D. Await culture results. IV vanco in meantime. Willie De Leon MD Subjective Patient evaluated this morning in bed. States he does still have some tenderness on his left knee but it has been well controlled with pain medications. He states he did have some nausea while in the ER but states it was after he received the IV morphine. He denies any further nausea as well as denies any recent fever or chills. He does have some dry skin near the back of his hairline but states he usually takes zyrtec and it stays under control. He states if he goes off for a day then it flares up. He was told by [facility] that he likely has psoriasis but he was supposed to see a fine wire drawer (unsure who) today but had to cancel to do being in the hospital. He states it is rescheduled for wednesday. Denies any visual or urinary symptoms or penile discharge. Denies engagement in any unprotected sex or cuts/open wounds that may have been a portal of entry. He states he did discuss this case with the orthopedic physician this morning and plans to go to the OR for I&D today. He understands that antibiotic choice may be dependent on culture results. Review of Systems Constitutional: no fever and no chills Eyes: no diplopia and no problem reported Ear, Nose, Mouth, Throat: no ear pain, no sore throat and no dysphagia Respiratory: no cough and no dyspnea Cardiovascular: no chest pain, no palpitations and no edema Gastrointestinal: no abdominal pain, no nausea, no vomiting, no constipation and no diarrhea/loose stools Genitourinary: no dysuria and no hematuria Musculoskeletal: no back pain left knee pain Integumentary: scaling skin on the nape of neck Neurologic: no headache(s) and no confusion Physical Exam Constitutional: WD/WN, vitals as above no acute distress Eyes: PERRL, conjunctivae normal, anicteric sclerae Neck: trachea midline, no thyromegaly Respiratory: normal respiratory effort, lungs clear to auscultation Cardiovascular: RRR, no murmur, no edema Gastrointestinal (Abdomen): normal bowel sounds, soft, nontender, no hepatosplenomegaly Musculoskeletal: no cyanosis or clubbing, extremities motor strength 5/5 ROM minimally decreased L knee Skin: 2.5cm fluctuant pocket lateral aspect of patella left knee. Warmth extending half way down left lower leg, around posterior knee and up to distal aspect of thigh Appears to have some purulent drainage. Mildly tender to palpation. Erythema and warmth within skin markings. No evidence of further spread. Without effusion Additional erythema posterior scalp, which patient states is prurutic Psychiatric: A+Ox3, euthymic affect Lymphatic: no cervical or axillary lymphadenopathy Results & Data Vital Signs (Past 12 Hours) Vital Signs Temp Pulse Resp BP Pulse Ox 01/26/19 07:26 36.3 C L 76 16 110/75 98 Laboratory Results 01/26/19 01/26/19 01/26/19 Range/Units 07:17 07:17 07:17 WBC 11.86 H (4.8-10.8) K/uL RBC 4.64 L (4.7-6.1) M/uL Hgb 14.1 (14.0-18.0) g/dL Hct 41.2 L (42-52) % MCV 88.8 (80-100) fL MCH 30.4 (25-34) pg MCHC 34.2 (32-36) g/dL RDW Std Deviation 39.3 (36.4-46.3) fL RDW Coeff of Jada 12.2 (11.5-14.5) % Plt Count 294 (130-400) K/uL MPV 9.3 (7.4-10.4) fL Immature Gran % (Auto) % Neut % (Auto) % Lymph % (Auto) % [place] % (Auto) % Eos % (Auto) % Baso % (Auto) % Immature Gran # (Auto) (0.00-0.02) K/uL Neut # (Auto) (1.4-6.5) K/uL Lymph # (Auto) (1.2-3.4) K/uL [place] # (Auto) (0.11-0.59) K/uL Eos # (Auto) (0-0.5) K/uL Baso # (Auto) (0-0.2) K/uL ESR 63 H (0-14) mm/hr Sodium 137 (136-145) mmol/L Potassium 4.3 (3.5-5.1) mmol/L Chloride 106 (98-107) mmol/L Carbon Dioxide 25 (21-32) mmol/L Anion Gap 6.0 (3-11) BUN 11 (7-18) mg/dl Creatinine 0.92 (0.6-1.4) mg/dl Est Cr Clr Drug Dosing 118.7 ml/min Est GFR ( Amer) 137.3 Est GFR (Non-Af Amer) 118.5 BUN/Creatinine Ratio 11.6 (10-20) Glucose 145 H (70-99) mg/dl Calcium 9.6 (8.5-10.1) mg/dl Total Bilirubin (0.2-1) mg/dl AST (15-37) U/L ALT (12-78) U/L Alkaline Phosphatase (45-117) U/L C-Reactive Protein 4.99 H (0-0.29) mg/dl Total Protein (6.4-8.2) gm/dl Albumin (3.4-5.0) gm/dl Globulin (2.5-4.0) gm/dl Albumin/Globulin Ratio (0.9-2) Procalcitonin (0-0.5) ng/ml Urine Color Urine Appearance (Clear) Urine pH (4.5-7.5) Ur Specific [place] (1.000-1.030) Urine Protein (Negative) Urine Glucose (UA) (Negative) Urine Ketones (Negative) Urine Blood (Negative) Urine Nitrite (Negative) Urine Bilirubin (Negative) Urine Urobilinogen (Negative) Ur Leukocyte Esterase (Negative) 01/25/19 01/25/19 01/25/19 Range/Units 18:12 18:12 18:12 WBC 13.12 H (4.8-10.8) K/uL RBC 4.72 (4.7-6.1) M/uL Hgb 14.4 (14.0-18.0) g/dL Hct 41.9 L (42-52) % MCV 88.8 (80-100) fL MCH 30.5 (25-34) pg MCHC 34.4 (32-36) g/dL RDW Std Deviation 39.9 (36.4-46.3) fL RDW Coeff of Jada 12.3 (11.5-14.5) % Plt Count 287 (130-400) K/uL MPV 9.4 (7.4-10.4) fL Immature Gran % (Auto) 0.2 % Neut % (Auto) 74.1 % Lymph % (Auto) 16.3 % [place] % (Auto) 7.6 % Eos % (Auto) 1.7 % Baso % (Auto) 0.1 % Immature Gran # (Auto) 0.02 (0.00-0.02) K/uL Neut # (Auto) 9.73 H (1.4-6.5) K/uL Lymph # (Auto) 2.14 (1.2-3.4) K/uL [place] # (Auto) 1.00 H (0.11-0.59) K/uL Eos # (Auto) 0.22 (0-0.5) K/uL Baso # (Auto) 0.01 (0-0.2) K/uL ESR (0-14) mm/hr Sodium 137 (136-145) mmol/L Potassium 3.8 (3.5-5.1) mmol/L Chloride 105 (98-107) mmol/L Carbon Dioxide 25 (21-32) mmol/L Anion Gap 6.0 (3-11) BUN 14 (7-18) mg/dl Creatinine 1.12 (0.6-1.4) mg/dl Est Cr Clr Drug Dosing 97.5 ml/min Est GFR ( Amer) 108.3 Est GFR (Non-Af Amer) 93.4 BUN/Creatinine Ratio 12.4 (10-20) Glucose 80 (70-99) mg/dl Calcium 9.2 (8.5-10.1) mg/dl Total Bilirubin 0.3 (0.2-1) mg/dl AST 25 (15-37) U/L ALT 42 (12-78) U/L Alkaline Phosphatase 74 (45-117) U/L C-Reactive Protein (0-0.29) mg/dl Total Protein 8.5 H (6.4-8.2) gm/dl Albumin 4.1 (3.4-5.0) gm/dl Globulin 4.4 H (2.5-4.0) gm/dl Albumin/Globulin Ratio 0.9 (0.9-2) Procalcitonin 0.15 (0-0.5) ng/ml Urine Color Urine Appearance (Clear) Urine pH (4.5-7.5) Ur Specific [place] (1.000-1.030) Urine Protein (Negative) Urine Glucose (UA) (Negative) Urine Ketones (Negative) Urine Blood (Negative) Urine Nitrite (Negative) Urine Bilirubin (Negative) Urine Urobilinogen (Negative) Ur Leukocyte Esterase (Negative) 01/25/19 Range/Units 18:05 WBC (4.8-10.8) K/uL RBC (4.7-6.1) M/uL Hgb (14.0-18.0) g/dL Hct (42-52) % MCV (80-100) fL MCH (25-34) pg MCHC (32-36) g/dL RDW Std Deviation (36.4-46.3) fL RDW Coeff of Jada (11.5-14.5) % Plt Count (130-400) K/uL MPV (7.4-10.4) fL Immature Gran % (Auto) % Neut % (Auto) % Lymph % (Auto) % [place] % (Auto) % Eos % (Auto) % Baso % (Auto) % Immature Gran # (Auto) (0.00-0.02) K/uL Neut # (Auto) (1.4-6.5) K/uL Lymph # (Auto) (1.2-3.4) K/uL [place] # (Auto) (0.11-0.59) K/uL Eos # (Auto) (0-0.5) K/uL Baso # (Auto) (0-0.2) K/uL ESR (0-14) mm/hr Sodium (136-145) mmol/L Potassium (3.5-5.1) mmol/L Chloride (98-107) mmol/L Carbon Dioxide (21-32) mmol/L Anion Gap (3-11) BUN (7-18) mg/dl Creatinine (0.6-1.4) mg/dl Est Cr Clr Drug Dosing ml/min Est GFR ( Amer) Est GFR (Non-Af Amer) BUN/Creatinine Ratio (10-20) Glucose (70-99) mg/dl Calcium (8.5-10.1) mg/dl Total Bilirubin (0.2-1) mg/dl AST (15-37) U/L ALT (12-78) U/L Alkaline Phosphatase (45-117) U/L C-Reactive Protein (0-0.29) mg/dl Total Protein (6.4-8.2) gm/dl Albumin (3.4-5.0) gm/dl Globulin (2.5-4.0) gm/dl Albumin/Globulin Ratio (0.9-2) Procalcitonin (0-0.5) ng/ml Urine Color Yellow Urine Appearance Clear (Clear) Urine pH 6.5 (4.5-7.5) Ur Specific [place] 1.020 (1.000-1.030) Urine Protein Negative (Negative) Urine Glucose (UA) Negative (Negative) Urine Ketones Negative (Negative) Urine Blood Negative (Negative) Urine Nitrite Negative (Negative) Urine Bilirubin Negative (Negative) Urine Urobilinogen Negative (Negative) Ur Leukocyte Esterase Negative (Negative) PG Care Time/CCT Total # of Minutes Spent Total Time Spent with Patient: Total time spent is greater than 50% in coordination of care (as documented) at patient's floor/unit and/or counseling patient:
[2019-01-26] MEDS ORDERED: fentaNYL citrate 100 MCG/2 ML VIAL ONE (14:06)
[2019-01-26] MEDS ORDERED: BACITRACIN INJ 50,000 UNIT VIAL ONE (14:49)
--- NOTE | 2019-01-26 14:52 | Anesthesiology Consultation ---
Date of Service January 26, 2019 Assessment & Plan (1) Encounter for pre-operative examination: Chart Review Chart Review: Acceptable Risk for Surgery Consults Requested none ASA ASA2 Proposed Anesthesia Anesthesia Type: General Risk / Benefits Reviewed With: PT / POA / Parent / Guardian, Accepts Plan and Informed Consent Obtained History Surgery Operation Date: 01/26/19 10:25 Proposed Procedures p Left Knee Incision and Drainage - Rocky Back M.D. Height/Weight Height: 5 ft 7 in Weight: 79.2 kg (BMI 27.3) Allergies Allergy/AdvReac Type Severity Reaction Status Date / Time chicken derived Allergy ITCHY Verified 01/25/19 20:45 Penicillins Allergy Rash Verified 01/25/19 20:45 Medications Home Medications Medication Instructions Recorded Confirmed Last Taken cetirizine [Zyrtec] 10 mg PO DAILY 01/25/19 01/25/19 Unknown naproxen [Naprosyn] 500 mg PO BID 01/25/19 01/25/19 01/25/19 10:00 sulfamethoxazole-trimethoprim 1 tab PO BID 01/25/19 01/25/19 01/25/19 10:00 [Bactrim DS] triamcinolone acetonide 1 applic TOPICAL BID PRN 01/25/19 01/25/19 Unknown Active Medications Generic Name Dose Route Start Last Admin Trade Name Freq PRN Reason Stop Dose Admin Acetaminophen 650 mg 01/25/19 23:56 01/26/19 03:08 Tylenol PO 02/24/19 23:55 650 mg Q4H PRN Administration mild pain or fever Cetirizine HCl 10 mg 01/26/19 09:00 01/26/19 08:44 Zyrtec PO 02/25/19 08:59 Not Given DAILY JONATHAN Famotidine 20 mg 01/25/19 22:30 01/26/19 08:44 Pepcid PO 02/24/19 22:29 Not Given BID JONATHAN Dextrose/Sodium Chloride 1,000 mls @ 125 mls/hr 01/25/19 23:56 01/26/19 14:10 D5w And 1/2nss IV 02/24/19 23:55 125 mls/hr .Q8H JONATHAN Infusion Vancomycin HCl 1,250 mg/ 275 mls @ 125 mls/hr 01/26/19 07:00 01/26/19 08:40 Sodium Chloride IV 02/05/19 06:59 Infused Q10H JONATHAN Infusion NPO Date Last Intake of Fluids: 01/25/19 Time Last Intake of Fluids: 23:59 Date Last Intake of Solids: 01/25/19 Time Last Intake of Solids: 23:00 Past Medical History Medical History No pertinent past medical history Psoriasis Exercise / Class Metabolic Activity II 4-5 Yardwork/Stairs/Walk up hill Negative for chest pain or shortness of breath. Past Family History Family History Other No pertinent family history in first degree relatives Past Anesthesia History No Family Hx of Anesthesia Complications History of PONV No Hx of Motion Sickness Social History Smoking Status: Never smoker Do You Dip or Chew Tobacco: No Hx Alcohol Use: Yes alcohol intake frequency: a few times a month Hx Substance Use: No Review of Systems Patient denies active symptoms of GERD. Physical Exam Vital Signs Last Vital Signs Temp 36.7 C 01/26/19 14:40 Pulse 88 01/26/19 14:40 Resp 20 01/26/19 14:40 BP 123/69 01/26/19 14:40 Pulse Ox 100 01/26/19 14:40 Constitutional not obese ENMT Mouth: no TMJ abnormality and oral opening not small Thyromental Distance: > or= 3.5 Finger Breadths Mallampati Class: III Neck normal visual inspection; neck extension not limited Respiratory normal respiratory effort Auscultation: lungs clear to auscultation bilaterally Cardiovascular Rate/Rhythm: regular rate and regular rhythm Heart Sounds: no murmur Neurologic moves all extremities Psychiatric Orientation: alert and oriented x 3 Testing Laboratory Results 01/26/19 07:17 01/26/19 07:17 Urine Color Yellow 01/25/19 18:05 Urine Appearance Clear (Clear) 01/25/19 18:05 Urine pH 6.5 (4.5-7.5) 01/25/19 18:05 Ur Specific [place] 1.020 (1.000-1.030) 01/25/19 18:05 Urine Protein Negative (Negative) 01/25/19 18:05 Urine Glucose (UA) Negative (Negative) 01/25/19 18:05 Urine Ketones Negative (Negative) 01/25/19 18:05 Urine Nitrite Negative (Negative) 01/25/19 18:05 Ur Leukocyte Esterase Negative (Negative) 01/25/19 18:05 01/25/19 20:15 Gram Stain - Final Knee,Left 01/25/19 18:10 Gram Stain - Final Knee,Left
[2019-01-26] MEDS ORDERED: ATROPINE SULFATE 0.1 MG/ML 10ML SYR IV PRN (14:54)
[2019-01-26] MEDS ORDERED: ePHEDrine sulfate 50 MG/ML AMP IV PRN (14:54)
[2019-01-26] MEDS ORDERED: ONDANSETRON INJ 2 MG/ML 2 ML VIAL IV PRN (14:54)
[2019-01-26] MEDS ORDERED: HYDROmorphone INJ 1 MG/ML SYRINGE IV PRN (14:54)
[2019-01-26] MEDS ORDERED: PROMETHAZINE HCL 12.5 MG in SODIUM CHLORIDE 0.9% 50 ML IV PRN (14:54)
--- NOTE | 2019-01-26 15:05 | History & Physical Bridge Note ---
Date of Service January 26, 2019 History & Physical Bridge Note I have examined the patient, reviewed the History & Physical and in the interval since the performance of the History & Physical I have noted the following changes of clinical significance: no changes noted
[2019-01-26] MEDS ORDERED: CEFAZOLIN 1000MG 1,000 MG/7.5 ML SYR IV SCH (15:18)
[2019-01-26] MEDS ORDERED: CEFAZOLIN 1,000 MG/7.5 ML IV PUSH IV ONE (15:20)
[2019-01-26] MEDS ORDERED: BUPIVACAINE 0.5 % 5 MG/1 ML MPF 30ML VIAL ONE (15:45)
[2019-01-26] MEDS ORDERED: LIDOCAINE HCL 1% 20 ML VIAL ONE (15:45)
[2019-01-26] MEDS ORDERED: DEXAMETHASONE SOD INJ 4 MG/ML VIAL ONE (15:50)
[2019-01-26] MEDS ORDERED: ONDANSETRON INJ 2 MG/ML 2 ML VIAL ONE (15:50)
[2019-01-26] MEDS ORDERED: PROPOFOL IV EMULSION 10 MG/ML 20 ML VIAL IV ONE (15:50)
[2019-01-26] MEDS ORDERED: LIDOCAINE HCL 2% 2 ML VIAL/AMP(20MG/ML) INFIL ONE (15:50)
--- NOTE | 2019-01-26 16:13 | Post Operative Brief Note ---
Immediate Post Op Note v1 Date of Surgery January 26, 2019 Pre & Post Diagnosis Operation Date: 01/26/19 10:25 Pre-Op Diagnosis: INFECTED PRE-PATELLAR BURSITIS LEFT KNEE Post-Op Diagnosis: INFECTED PRE-PATELLAR BURSITIS LEFT KNEE I identified the patient and participated in the time-out.: Yes Procedure Operation Date: 01/26/19 10:25 Actual Procedures p Left Knee Incision and Drainage(Left) - Rocky Back M.D. Surgeon Rocky Back Drawer In Plain Loom None Estimated Blood Loss 15 Findings Consistent with Post-Op Diagnosis Drains Hemovac Drain (10 Serbian)
--- NOTE | 2019-01-26 16:29 | Operative Report ---
Post Operative Report Pre & Post Diagnosis Operation Date: 01/26/19 10:25 Pre-Op Diagnosis: INFECTED PRE-PATELLAR BURSITIS LEFT KNEE Post-Op Diagnosis: INFECTED PRE-PATELLAR BURSITIS LEFT KNEE I identified the patient and participated in the time-out.: Yes Procedure Operation Date: 01/26/19 10:25 Actual Procedures Left Knee Irrigation and Debridement of Septic Prepatellar Bursitis - Rocky Back M.D. Surgeon Rocky Back Manager Delivery None Estimated Blood Loss 15 Findings Consistent with Post-Op Diagnosis Specimens None Drains Medium Hemovac Anesthesia Type General Complications none Disposition Disposition: Recovery Room Indications Mr. Nickerson is a 23-year-old male who has had painful swelling on his left knee over the past week, with purulent drainage. History, clinical exam, and imaging were consistent with the above diagnosis. Risks, benefits, and alternatives of surgery were explained in detail. The patient understood all this and wished to proceed. Description of Procedure Patient was identified in the preoperative holding area. Operative extremity was marked. Patient was then brought back to the operating room, and general anesthesia was induced without complication. Appropriate weight-based dose of Ancef was infused intravenously for antibiotic prophylaxis. Tourniquet was placed on the left upper thigh. Left leg was then prepped and draped in a standard sterile fashion using Chlorhexidine prep. The leg was then exsanguinated with elevation, and the tourniquet was inflated. I made a longitudinal incision directly over the subcutaneous abscess and sinus tract. There was immediate expulsion of purulent material and hematoma. This was evacuated with suction and by manual expression. I then aggressively debrided the abscess cavity with curette and rongeur. After thorough debridement was completed, I then copiously irrigated the abscess cavity with 3 L of sterile saline via gravity irrigation. Since the abscess cavity was fairly large, decided to close skin over drain. A medium Hemovac was placed into the depth of the abscess cavity and tunneled through the skin and out the lateral thigh. I then closed skin over top of the drain with 3-0 nylon suture. I then anesthetized the wound bed with a 50/50 mixture of 1% lidocaine and 0.5% Marcaine without epinephrine. Sterile dressings were then applied with Xeroform, sterile gauze, and Tegaderm. The drapes were removed, the patient was awakened from anesthesia, and taken to the Post Anesthesia Care Unit in stable condition. There were no immediate complications from the procedure. I was present and scrubbed for the entire procedure. I attest to the content of the Intraoperative Record and any orders documented therein. Any exceptions are noted below.
[2019-01-26] MEDS: fentaNYL citrate 100 MCG/2 ML VIAL IV PRN ×2 (16:36→16:41)
--- NOTE | 2019-01-26 17:03 | Anesthesiology Progress Note ---
Date of Service January 26, 2019 Anesthesia Post Procedure Vital Signs Vital Signs: Temp Pulse Pulse Resp BP BP Pulse Ox 01/26/19 16:55 36.7 C 86 14 121/53 L 98 01/26/19 16:45 74 16 131/53 L 100 01/26/19 16:35 85 20 132/60 100 01/26/19 16:25 80 18 131/58 L 100 01/26/19 16:17 36.4 C L 79 16 126/63 100 01/26/19 14:40 36.7 C 88 20 123/69 100 01/26/19 07:26 36.3 C L 76 16 110/75 98 01/25/19 23:40 36.4 C L 86 16 134/78 99 01/25/19 23:20 85 21 118/69 98 01/25/19 22:01 95 H 14 01/25/19 22:00 79 14 118/40 L 01/25/19 21:30 85 23 118/71 01/25/19 21:01 84 23 01/25/19 21:00 99 H 17 111/93 01/25/19 20:48 98 H 18 126/76 98 01/25/19 20:30 99 H 17 126/76 01/25/19 20:00 101 H 19 126/87 01/25/19 19:30 102 H 14 118/63 01/25/19 19:03 96 H 17 119/68 96 01/25/19 19:02 92 H 17 119/68 97 01/25/19 19:00 96 H 17 01/25/19 18:30 92 H 20 01/25/19 18:10 103 H 18 01/25/19 17:43 97 Pain Intensity Left Knee: Pain Intensity: 5 Transfer of Care Handoff Completed per policy Notes Mental Status: alert / awake / arousable and participated in evaluation Patient Amnestic to Procedure: Yes Nausea / Vomiting: adequately controlled Pain: adequately controlled Airway Patency, RR, SpO2: stable & adequate BP & HR: stable & adequate Hydration State: stable & adequate Anesthetic Complications: no major complications apparent and Pt Satisfied with anesthetic care
[2019-01-26] MEDS ORDERED: ACETAMINOPHEN 1000 MG/100 ML IV IV ONE ×2 (17:07→17:08)
[2019-01-26] MEDS: ENOXAPARIN INJ 40 MG/0.4 ML SYR SQ SCH (17:40)
[2019-01-26] MEDS: KETOROLAC TROMETHAMINE 15 MG/ML VIAL IV PRN (20:52)
[2019-01-27] MEDS: D5W AND 1/2NSS 1,000 ML IV SCH ×2 (01:35→08:45)
[2019-01-27] MEDS: KETOROLAC TROMETHAMINE 15 MG/ML VIAL IV PRN (03:16)
[2019-01-27] MEDS: VANCOMYCIN HCL 1,250 MG in SODIUM CHLORIDE 0.9% 250 ML IV SCH ×2 (03:23→13:21)
[2019-01-27 07:28] LABS: Hematocrit (blood only) 37.2 % (42-52); Hemoglobin 12.6 g/dL (14.0-18.0); Mean Corpuscular Hemoglobin 29.7 pg (25-34); Mean Corpuscular Hgb Conc 33.9 g/dL (32-36); Mean Corpuscular Volume 87.7 fL (80-100); Mean Platelet Volume 9.4 fL (7.4-10.4); Platelet Count 266 K/uL (130-400); RDW Coefficient of Variation 12.1 % (11.5-14.5); RDW Standard Deviation 38.7 fL (36.4-46.3); Red Blood Count 4.24 M/uL (4.7-6.1); White Blood Count 9.27 K/uL (4.8-10.8)
[2019-01-27 08:07] LABS: BUN Creatinine Ratio 12.7 (10-20); Calcium 8.3 mg/dl (8.5-10.1); Creatinine Clr Calc Pharmacy 124.1 ml/min; Est GFR (African American) 142.3; Est GFR (Non-African American) 122.8; Potassium 3.6 mmol/L (3.5-5.1)
--- NOTE | 2019-01-27 08:22 | Anesthesiology Progress Note ---
Date of Service January 27, 2019 Anesthesia Post Procedure Vital Signs Vital Signs: Temp Pulse Pulse Resp BP Pulse Ox 01/27/19 07:37 36.5 C 73 16 103/62 99 01/26/19 23:48 36.8 C 83 18 109/58 L 97 01/26/19 20:29 36.5 C 98 H 16 126/69 98 01/26/19 19:27 36.8 C 97 H 16 129/71 98 01/26/19 18:25 37.1 C 99 H 16 125/70 98 01/26/19 17:48 36.8 C 92 H 16 117/70 99 01/26/19 17:25 36.7 C 76 16 117/74 98 01/26/19 16:55 36.7 C 86 14 121/53 L 98 01/26/19 16:45 74 16 131/53 L 100 01/26/19 16:35 85 20 132/60 100 01/26/19 16:25 80 18 131/58 L 100 01/26/19 16:17 36.4 C L 79 16 126/63 100 01/26/19 14:40 36.7 C 88 20 123/69 100 Pain Intensity Left Knee: Pain Intensity: 4 Notes Mental Status: alert / awake / arousable and participated in evaluation Patient Amnestic to Procedure: Yes Nausea / Vomiting: adequately controlled Pain: adequately controlled Airway Patency, RR, SpO2: stable & adequate BP & HR: stable & adequate Hydration State: stable & adequate Anesthetic Complications: no major complications apparent and Pt Satisfied with anesthetic care
[2019-01-27] MEDS: FAMOTIDINE 20 MG TAB PO SCH (08:48)
[2019-01-27] MEDS: CETIRIZINE HCL 10 MG TABLET PO SCH (08:48)
[2019-01-27] MEDS: ENOXAPARIN INJ 40 MG/0.4 ML SYR SQ SCH (08:48)
[2019-01-27] MEDS ORDERED: VANCOMYCIN TROUGH ONE (12:30)
--- NOTE | 2019-01-27 13:07 | Discharge Summary ---
Date of Service January 27, 2019 Admission HPI Per Admitting Provider 23 y/o male student presented to the ED with pain, swelling and redness to the anterior left knee of 2 days duration. He went to the [facility] and had pre-patellar bursa tapped and was placed on Bactrim. Following this the pain and redness worsened. The patient has recently traveled to the [facility] for break. He declined having F/C, N/V/D, cough, SOB, or chest pain. Left knee pain is 7/10. Primary Care Provider: [facility] Admission Exam Per Admitting Provider General- adult male, NAD Head- atraumatic Eyes- PERRL, EOMI, anicteric ENT- oropharynx clear Neck- supple, no JVD, no adenopathy, no thyromegaly. Lungs- CTA b/l no R/R/W Heart- regular rhythm; no murmur, no gallop, no rub appreciated Abdomen- normal bowel sounds, soft, nontender. Extremities- erythema centered over the left patella extending 1/2 way to distal leg, around to posterior knee, and proximally to 1/3 lower thigh. The knee is dressed following I&D in ED. Neuro- alert, oriented x 3; PERRL, EOMI; CN's II-XII grossly intact, non-focal. Skin- See extremities, also erythema to the right hand between thumb and index finger and also base of posterior scalp these areas are pruritic. Principal Diagnosis Left-sided Septic Prepatellar Bursitis and Cellulitis Discharge Exam Constitutional WD/WN, vitals as above no acute distress Eyes PERRL, conjunctivae normal, anicteric sclerae Neck trachea midline, no thyromegaly Respiratory normal respiratory effort, lungs clear to auscultation Cardiovascular RRR, no murmur, no edema Gastrointestinal (Abdomen) normal bowel sounds, soft, nontender, no hepatosplenomegaly Musculoskeletal no cyanosis or clubbing, extremities motor strength 5/5 Skin skin warm and dry normal turgor, + wound (Surgical dressing in place) and + erythema (Receding erythema surrounding the left knee) some scaling posterior base of scalp Psychiatric A+Ox3, euthymic affect Lymphatic no cervical or axillary lymphadenopathy Discharge Data Allergies Allergy/AdvReac Type Severity Reaction Status Date / Time chicken derived Allergy ITCHY Verified 01/25/19 20:45 Penicillins Allergy Rash Verified 01/25/19 20:45 Consultations 01/25/19 20:01 ED Decision to Admit Stat 01/25/19 23:56 Consult Infectious Diseases Routine Consult Orthopedic Surgery Routine Procedures Performed Operation Date: 01/26/19 10:25 Actual Procedures p Left Knee Incision and Drainage(Left) - Rocky Back M.D. Ordered Studies 01/25/19 23:56 CT knee LT wo con Urgent Hospital Course (1) Infected prepatellar bursa: * Patient admitted with evidence of infection LEFT prepatellar burse. Recent travel to [facility] on cruise, concern for Vibrio. Rocephin/Levaquin in ED x 1. Switched to vancomycin as patient without bullae at this. Patient was seen at [facility] and placed on Bactrim Wednesday without improvement. Procalcitonin wnl. CRP elevated at 4.99. Patient afebrile. * CT LEFT knee--> soft tissue swelling within anterolateral left knee, likely infection/cellulitis. Punctate focus of SQ gas within prepatellar soft tissues without definite loculated fluid collection. ?Gas forming organism -- culture result - staph * Drain placed and discontinued on day of discharge. * Infectious disease on consult -- rec keflex for two weeks. Follow up with PCP and ortho as outpatient. (2) Dermatitis: * Patient felt this is allergic reaction to something during his trip. Denies new shampoo/conditioner/body wash. * Given 1x dose of solumedrol 40mg, triamcinolone topical. Improved * Continued home zyrtec * Dermatology appointment on Wednesday for further evaluation of possible psoriasis (3) Cellulitis of knee, left: * As above * Improved (4) DVT prophylaxis: * Lovenox while inpatient Total Time Total Time Spent Total Time Spent (In Minutes): 35 Discharge Plan Discharge Items Patient Disposition: Home - Self-Care Reason For Visit: INFECTED PRE-PATELLAR BURSITIS LEFT KNEE Discharge Diagnosis: Prepatellar Abscess Left Knee Goals: You have been hospitalized for an urgent problem which required surgery. During your stay at [facility], we have made an effort to correct the problem that brought you to the hospital while keeping you as comfortable as possible. Surgery and medications were used to bring your condition under control and your discharge instructions will include directions for any medications you should take after leaving the hospital. Please make sure to follow the advice of your surgeon regarding follow up with the surgeon and with your primary care provider. Activity: As commented below Activity Comment: No strenuous activity, no exercise class or activities Bathing: Keep incision dry Exercise/Sports: Wait until after follow-up appointment Non-emergency contact: Primary Care Provider Call non-emergency contact if: you have any medication questions Follow-up/Referrals: [facility] [Non-Staff] - 02/03/19 11:00 am (Please, follow up at [facility] with Dr. Raisa Trujillo on WednesdayFebruary 03 at 11:00 am. *If you need to change this appointment, call the office at [phone].) Rocky Back M.D. [Physician] - (Follow up in 2 weeks from surgery for suture removal. Please call for follow up.) Diet: Regular Addtl Attending Provider Instructions: You have been sent a prescription for keflex (cephalexin) as an antibiotic to continue for the infection above your knee. You should take this medications as prescribed, 500mg four times daily for the next two weeks. If you develop a rash, you may take benadryl over the counter. If it persists, please call your primary care provider or return to the emergency room. You may take tylenol as needed for pain. Please do not exceed 3,000mg in a 24 hour period of time. You should follow up with Dr. Back (orthopedics) in the next two weeks to have your sutures removed and to check on the wound. If you do not hear from them, please contact their office at [phone]. You should be seen by your primary care provider in the next 3-5 days. Please report to the emergency room for any increasing redness, swelling, pain, fevers or chills, or for any symptoms that are concerning for you. Addtl Car Filler Provider Instructions: Dressing instructions per orthopedic team Dressing may be removed in 48 hours. Please cover with dry gauze and gauze wrap until 7 days after surgery. If no drainage, may discontinue dressings at that time. After 48 hours, may remove dressing to shower. Weightbear as tolerated on the left lower extremity. Follow up with Dr. Back in 12-14 days post operatively for suture removal. Pending Studies at Discharge: Yes Studies:: Blood Cultures Stand-Alone Forms: [facility], Work/School Release (Inpt) Medications and DC Order Prescriptions: New cephalexin [Keflex] 500 mg capsule 500 mg PO QID 14 Days Qty: 56 RF: 0 Continued triamcinolone acetonide 0.5 % cream 1 applic TOPICAL BID PRN (Reason: DRY SKIN/ITCH) RF: 0 cetirizine [Zyrtec] 10 mg Tablet 10 mg PO DAILY RF: 0 naproxen [Naprosyn] 500 mg tablet 500 mg PO BID RF: 0 Discontinued sulfamethoxazole-trimethoprim [Bactrim DS] 800-160 mg tablet 1 tab PO BID RF: 0 Discharge Orders: Discharge Order (Routine); Ordered 01/27/19 Ordered By: Tran Portillo/Other Patient Handouts: Cephalexin Monohydrate Oral tablet Admission Data Admit Date/Time: 01/25/19 22:26 Attending Provider: Willie De Leon Admit Provider: Nima Montoya Primary Care Provider: Raisa Trujillo Other Providers: Nima Montoya ; Iqra Nails ; Rocky Back Other Interventions: Discharge Summary Assessment (RN) Last Done: 01/27/19 13:21 DC Date/Time DO NOT enter until pt leaves facility: 01/27/19 15:40 Supervising Physician Co-Signing Physician Notes Attending Attestation and Discharge Note: Pt seen/examined, chart reviewed in detail, discharge care plan d/w EMELINA Simon. I agree w/ the chris components of her discharge documentation. 23yo male with prepatellar septic bursitis of L knee. Exact cause uncertain but patient with pre-existing chronic skin issues (eczema?) which may have set him up for this. Blood cultures negative during the stay. Underwent I/D by orthopedics in the OR. Culture with staph aureus, pansensitive. Drain discontinued prior to discharge. ID consulted - 14-day course keflex recommended. Discharge exam: gen - NAD heart - RRR, s1 s2 lungs - CTA b/l abd - soft NT ND BS+ ext - scant left foot edema musculo - left knee in large dressing; no cellulitis above or below the left knee Willie De Leon MD
[2019-01-27] MEDS ORDERED: cephALEXin 500 MG CAP PO SCH (13:30)
--- NOTE | 2019-01-27 14:26 | Infectious Disease Progress Nt ---
Date of Service January 27, 2019 Assessment & Plan (1) Infected prepatellar bursa: Patient with septic prepatellar bursitis with surrounding cellulitis involving the left knee, status post incision and drainage. Cultures positive for methicillin sensitive staph aureus. Given rapid clinical improvement on vancomycin, think the patient could be transition to oral antibiotics and recommend cephalexin 500 mg 4 times daily for 14 days. Follow-up with orthopedic surgery. (2) Cellulitis of knee, left: Subjective Patient seen in follow-up for septic prepatellar bursitis. Status post incision and drainage. Patient comfortable, offers no new complaints. Surrounding erythema has regressed. Remains afebrile. Review of Systems Review of Systems: All systems reviewed & are unremarkable except as noted in HPI & below Physical Exam Constitutional: WD/WN, vitals as above comfortable; no acute distress Eyes: PERRL, conjunctivae normal, anicteric sclerae ENMT: external ear and nose normal, oropharynx normal Neck: trachea midline, no thyromegaly neck nontender Respiratory: normal respiratory effort, lungs clear to auscultation normal percussion; does not use accessory muscles Cardiovascular: Rate/Rhythm: regular rate and regular rhythm Heart Sounds: normal S1 and normal S2; no gallop, no murmur and no cardiac rub Vessels: normal peripheral pulses; no JVD Gastrointestinal (Abdomen): normal bowel sounds, soft, nontender, no hepatosplenomegaly Musculoskeletal: no cyanosis or clubbing, extremities motor strength 5/5 Spine: thoracic spine normal to inspection and lumbar spine normal to inspection; no cervical spinal tenderness Skin: no rashes, warm and dry normal turgor, + wound (Surgical dressing in place) and + erythema (Receding erythema surrounding the left knee) Neurologic: moves all extremities and awake; no focal motor deficits Psychiatric: A+Ox3, euthymic affect Orientation: cooperative Lymphatic: no cervical or axillary lymphadenopathy no inguinal lymphadenopathy Results & Data Vital Signs (Past 12 Hours) Vital Signs Temp Pulse Resp BP Pulse Ox 01/27/19 07:37 36.5 C 73 16 103/62 99 Laboratory Results Short CBC 01/27/19 Range/Units 07:01 WBC 9.27 (4.8-10.8) K/uL Hgb 12.6 L (14.0-18.0) g/dL Hct 37.2 L (42-52) % Plt Count 266 (130-400) K/uL BMP 01/27/19 07:01 Sodium 138 Potassium 3.6 D Chloride 106 Carbon Dioxide 28 BUN 11 Creatinine 0.88 Glucose 114 H Calcium 8.3 L Diagnostic Findings Microbiology 01/25/19 20:15 Knee,Left Gram Stain - Final 01/25/19 20:15 Knee,Left Wound Culture - Final Staphylococcus aureus 01/25/19 18:10 Knee,Left Gram Stain - Final 01/25/19 18:10 Knee,Left Wound Culture - Final Staphylococcus aureus 01/25/19 18:12 Blood Aerobic Blood Culture - Preliminary No growth in Aerobic bottle after 24 hours. 01/25/19 18:12 Blood Anaerobic Blood Culture - Preliminary No growth in Anaerobic bottle after 24 hours. 01/25/19 18:19 Blood Aerobic Blood Culture - Preliminary No growth in Aerobic bottle after 24 hours. 01/25/19 18:19 Blood Anaerobic Blood Culture - Preliminary No growth in Anaerobic bottle after 24 hours. PG Care Time/CCT Total # of Minutes Spent Total Time Spent with Patient: Total time spent is greater than 50% in coordination of care (as documented) at patient's floor/unit and/or counseling patient:
--- NOTE | 2019-01-27 15:04 | Orthopedic Progress Note ---
Date of Service January 27, 2019 Assessment & Plan (1) Infected prepatellar bursa: POD #1 s/p Left Knee Irrigation and Debridement of Septic Prepatellar Bursitis Continue IV antibiotics per ID and medicine. Cultures growing MSSA. Dressing changed today. WBAT LLE Hemovac removed today--only 5 cc of bloody drainage since yesterday. D/C planning--per medicine. May be able to be d/c'd home tomorrow depending on finalized cultures. Subjective No new complaints today. States the knee generally feels better today. He's able to walk now but with some discomfort. Physical Exam Constitutional: WD/WN, vitals as above Musculoskeletal: Gait: + antalgic gait (left) Knee: + surgical incision (left knee: anterolateral aspect of patella. Well approximated.), + surgical drain present (hemovac had drained 5 cc. Removed today.) and + limited ROM of knee (left knee but with improved ROM); knee normal to inspection, no deformity, no effusion, no skin erythema and no ecchymosis Psychiatric: A+Ox3, euthymic affect Results & Data Vital Signs (Past 12 Hours) Vital Signs Temp Pulse Resp BP Pulse Ox 01/27/19 07:37 36.5 C 73 16 103/62 99
== END 2019-01-27 15:40 | disposition home or self-care (01) | DRG 558 ==
LOC: ED 15:56 → 3N 22:26 → SUATTDRO 22:26 → 3N 23:27